=== PATIENT | female | born 1960 | race Caucasian/White ===

== ENCOUNTER 2016-10-09 10:25 | Inpatient (IN) | payer OTHER ==
[2016-10-09] VITALS (8 sets, daily range): BP systolic 123–132; BP diastolic 68–83; PULSE 72–80; RESP 16–18; TEMP 97.9; Ht 160 cm; Wt 64.5 kg
[~2016-10-09] VITALS: Ht 160 cm; Wt 64.5 kg
[~2016-10-09 10:25] MED LIST: LORA-444 PO; SERT100T PO; ZYPREXA; [UNRECOGNIZED DRUG - CODE] PO
[2016-10-09] MEDS ORDERED: morphine 4 MG/ML VIAL IV STA ×2 (10:51→13:06)
[2016-10-09] MEDS ORDERED: ONDANSETRON 4 MG INJ IV STA ×2 (10:51→13:06)
[2016-10-09] MEDS ORDERED: DIAZ10TA4 PO (10:54)
[2016-10-09] MEDS ORDERED: QUET100T PO (10:54)
--- NOTE | 2016-10-09 11:03 | ERA ---
ER Documentation Chief Complaint Date/Time DATE: 10/09/16 TIME: 10:56 Chief Complaint SENT BY PMD FOR CHEST PAIN , SOB HPI 56-year-old female who presents from urgent care clinic for chest pain. The patient gives a prolonged description of a history that includes multiple episodes of "my heart stopping and I wake up intubated ". The patient is also wearing a Holter monitor for palpitations that started earlier this month. The patient has been on a Holter monitor for approximately 1-1/2 weeks. The patient describes chest pain that is left-sided, sharp, pleuritic including her left back. No mid back pain, no sudden onset of pain. She also describes a remote history of ruptured intracranial aneurysm, intracranial hemorrhage. She denies any headache currently. She denies any recent travel or immobilization no history of DVT or pulmonary embolism. The patient states that Dr. Rizzo has been talking about arranging for stress test or angiogram but she has not had that performed at this time. ROS All systems reviewed and are negative except as per history of present illness. Medications Home Meds Reported Medications Quetiapine Fumarate* (Seroquel*) 100 Mg Tablet, 100 MG PO HS, #30 TAB 10/09/16 Diazepam* (Diazepam*) 10 Mg Tablet, 10 MG PO DAILY Y for PRN, TAB 10/09/16 Discontinued Reported Medications Meperidine Hcl (Demerol) 100 Mg Tab, 100 MG PO DAILY Y 10/26/12 [Zyprexa] No Conflict Check 10/26/12 Sertraline Hcl* (Zoloft*) 100 Mg Tablet, 100 MG PO DAILY 10/26/12 Lorazepam* (Ativan*) 2 Mg Tablet, 2 MG PO DAILY 10/26/12 Allergies Allergies: Coded Allergies: No Known Drug Allergies (Verified Allergy, Unknown, 10/09/16) PMhx/Soc History of Surgery: Yes (NECK AND SPINE INFUSIONS) Anesthesia Reaction: No Hx Neurological Disorder: Yes (ORGANIC BRAIN DX., CYST, BRAIN ATROPHY) Hx Respiratory Disorders: No Hx Cardiac Disorders: Yes (ANEURYSMS) Hx Psychiatric Problems: No Hx Miscellaneous Medical Probl: No Hx Alcohol Use: Yes (OCCASIONAL) Hx Substance Use: No Hx Tobacco Use: Yes FmHx Family History: No diabetes Physical Exam Vitals Vital Signs Date Time Temp Pulse Resp B/P Pulse Ox O2 Delivery O2 Flow Rate FiO2 10/09/16 12:22 98.1 85 18 155/83 100 Nasal Cannula 1.0 10/09/16 10:35 Nasal Cannula 1 10/09/16 10:27 98.1 109 18 196/86 96 Physical Exam General: Well developed, well nourished, no acute distress Head: Normocephalic, atraumatic. Eyes: Pupils equally reactive, EOM intact ENT: Moist mucous membranes Neck: Supple, no lymphadenopathy Respiratory: Lungs clear bilaterally, no distress Cardiovascular: RRR, no murmurs, rubs, or gallops Abdominal: Soft, non-tender, non-distended, no peritoneal signs : Deferred MSK: No edema, no unilateral swelling, 5/5 strength, no pulse deficits Neurologic: Alert and oriented, moving all extremities, normal speech, no focal weakness, no cerebellar signs Skin: No rash Psych: Normal mood Result Diagram: 10/09/16 1035 10/09/16 1035 Results 24 hrs Laboratory Tests Test 10/09/16 10:35 Activated Partial Thromboplast Time 30.1Sec Anion Gap 18 Basophils # 0.110^3/ul Basophils % 0.7% Blood Urea Nitrogen 12mg/dl Calcium Level 9.6mg/dl Carbon Dioxide Level 30mmol/L Chloride Level 101mmol/L Creatinine 0.73mg/dl Eosinophils # 0.510^3/ul Eosinophils % 6.4% Glucose Level 98mg/dl Hematocrit 46.3% Hemoglobin 15.4g/dl INR International Normalized Ratio 0.91 Lymphocytes # 3.210^3/ul Lymphocytes % 44.0% Mean Corpuscular Hemoglobin 31.0pg Mean Corpuscular Hemoglobin Concent 33.3g/dl Mean Corpuscular Volume 93.3fl Mean Platelet Volume 10.2fl Monocytes # 0.510^3/ul Monocytes % 6.3% Neutrophils # 3.110^3/ul Neutrophils % 42.3% Nucleated Red Blood Cells # 0.010^3/ul Nucleated Red Blood Cells % 0.0/100WBC Platelet Count 52873^3/UL Potassium Level 4.2mmol/L Prothrombin Time 12.3Sec Prothrombin Time Ratio 1.0 Red Blood Count 4.9610^6/ul Red Cell Distribution Width 13.0% Sodium Level 145mmol/L Troponin I < 0.012ng/ml White Blood Count 7.310^3/ul Current Medications Medications (Trade) Dose Ordered Sig/Gin Route PRN Reason Start Time Stop Time Status Last Admin Dose Admin Morphine Sulfate (morphine) 4 mg ONCE STAT IV 10/09/16 10:51 10/09/16 10:53 DC 10/09/16 11:06 Ondansetron HCl 4 mg 4 mg ONCE STAT IV 10/09/16 10:51 10/09/16 10:53 DC 10/09/16 11:06 Iohexol 100 ml @ ud STK-MED ONCE .ROUTE 10/09/16 11:49 10/09/16 11:50 DC 10/09/16 12:20 Sodium Chloride (NS) 100 ml @ ud STK-MED ONCE .ROUTE 10/09/16 11:49 10/09/16 11:50 DC 10/09/16 12:21 Aspirin (Aspirin) 324 mg ONCE ONCE PO 10/09/16 13:00 10/09/16 13:01 DC Ondansetron HCl (Zofran Inj) 4 mg ER BRIDGE PRN IV NAUSEA AND/OR VOMITING 10/09/16 13:30 10/10/16 13:29 Acetaminophen (Tylenol Tab) 650 mg ER BRIDGE PRN PO MILD PAIN/FEVER 10/09/16 13:30 10/10/16 13:29 Procedures/MDM EKG, MONITORS, & DIAGNOSTIC IMAGING: EKG: I reviewed and interpreted a 12-lead EKG. Rhythm: Normal sinus rhythm Ectopy: None Intervals: No abnormalities ST segments: No elevations or depressions T waves: No contiguous inversions Repeat EKG: EKG: I reviewed and interpreted a 12-lead EKG. Rhythm: Normal sinus rhythm Ectopy: None Intervals: No abnormalities ST segments: No elevations or depressions T waves: No contiguous inversions Chest x-ray: I reviewed and interpreted a 1 view of the chest Mediastinum: No enlargement Cardiac silhouette: No cardiomegaly Airspace: Clear lung teixeira bilaterally without evidence of pneumothorax Bones: No evidence of fracture CTPA: No evidence of pulmonary embolism LAB INTERPRETATION: Negative troponin MEDICAL DECISION MAKING: The patient's history, physical exam and clinical presentation is concerning for possible cardiogenic etiology and acute coronary syndrome. However, the patient also has multiple different descriptions of history and complications including possible cardiac arrest though not documented in our electronic medical record. The patient also has some pleuritic pain. This does raise the concern for possible pulmonary embolism. She states that she was recently hospitalized at [facility] but left AMA for chest pain. She did not see a heel molder at that time. Given the patient's description of pain I believe she meets moderate risk profile for [place] for CT PE study will be obtained. Low concern for dissection though slightly hypertensive. Avoid aspirin until CT imaging is obtained. Based on the patient's clinical exam and history and risk factors, I have a much lower clinical concern for pulmonary embolism, acute aortic dissection, pneumothorax, pneumonia, cardiac tamponade. HEART Score: 4 MACE Rate: 16.6% Shared Decision Making: We had a conversation regarding risk stratification, MACE rate, and the risks, benefits, alternatives of disposition planning options. Disposition planning: Given the patient's complex history I would recommend inpatient hospitalization. ER COURSE: I will avoid aspirin until negative CT imaging the low clinical concern for dissection. If the patient has a pulmonary embolism anticoagulation would likely be contraindicated given her history of intracranial hemorrhage. Consideration for IVC filter. Given the patient's persistent chest pain, reports that that Dr. Rizzo is considering angiogram inpatient hospitalization with cardiology consultation and consideration for provocative testing or angiography would be reasonable. Dr. Porter has been kind enough to come and evaluate the patient. He recommends serial troponins and patient observation and hospitalization. Aspirin provided I kept the patient and/or family informed of laboratory and diagnostic imaging results throughout the emergency room course. DISPOSITION PLAN: Telemetry admission for management of chest pain CONSULTATION: Accepting care team and consultations: I discussed the current laboratory data, diagnostic imaging and emergency care provided. Admitting team: Dr. Gemini LYLE Admitting team indication: Insurance directed, regal Consulting services: Cardiology Dr. Porter Departure Diagnosis: Primary Impression: Chest pain Qualified Code: R07.9 - Chest pain, unspecified type Condition: USAMA Winchester MD Oct 09, 2016 11:03
--- NOTE | 2016-10-09 11:12 | RADRPT ---
PROCEDURE: XR Chest. CLINICAL INDICATION: Chest pain TECHNIQUE: Chest AP portable. COMPARISON: No comparison available. FINDINGS: Cardiac device over left chest. The mediastinal structures are unremarkable. The heart is normal in size and configuration. The pu lmonary vascularity is normal. The lung teixeira are unremarkable. No consolidation is identified. The pleural spaces are unremarkable. The axial skeleton is unremarkable. IMPRESSION: No active intrathoracic disease. RPTAT: HGDB .Kleber Cedeño MD, MD Date Time Electronically viewed and signed by .Kleber Cedeño MD, on 10/09/2016 11:12 .B/
[2016-10-09 11:14] LABS: ADD SCAN DIFF NO
[2016-10-09 11:22] LABS: CHLORIDE 101 mmol/L (97-110); SODIUM 145 mmol/L (135-144)
[2016-10-09 11:23] LABS: POTASSIUM 4.2 mmol/L (3.5-5.1)
[2016-10-09 11:25] LABS: CREATININE 0.73 mg/dl (0.44-1.00); INR 0.91; PROTIME 12.3 Sec (12.2-14.2)
[2016-10-09 11:26] LABS: ANION GAP 18 (8-16); BLOOD UREA NITROGEN 12 mg/dl (7-20); CALCIUM 9.6 mg/dl (8.4-10.2); CARBON DIOXIDE 30 mmol/L (21-31); GLUCOSE 98 mg/dl (70-220); PARTIAL THROMBOPLASTIN TIME 30.1 Sec (25.0-35.0)
--- NOTE | 2016-10-09 11:26 | CONS ---
Date/Time of Note Date/Time of Note DATE: 10/09/16 TIME: 11:21 Assessment/Plan Assessment/Plan Chief Complaint/Hosp Course 1) Atypical chest pain likely noncardiac, likely musculosceletal 2) Unspecified heart disease Problems: Additional Assessment/Plan 1) serial troponin 2) will review office records Consultation Date/Type/Reason Admit Date/Time Date of Consultation: Oct 09, 2016 Type of Consultation: cv Reason for Consultation chest pain Referring Provider: USAMA HOGUE MD Hx of Present Illness patient reports left sided chest pain, localized, sharp, worse with inspiration , reports sob due to attempts to breath shallow, reproducible by touch. No syncope or near syncope, currentlyt is wearing monitor device. patient's states confusing history. denies distress Constitutional: no complaints ENT: no complaints Respiratory: shortness of breath Cardiovascular: chest pain Gastrointestinal: no complaints Musculoskeletal: no complaints Skin: no complaints Neurologic: no complaints Past Medical History Medical History: other (unspecified heart disease) Family History Significant Family History: hypertension Social History Alcohol Use: occasionally Smoking Status: Current every day smoker Drug Use: none Exam/Review of Systems Vital Signs Vitals Vital Signs Date Time Temp Pulse Resp B/P Pulse Ox O2 Delivery O2 Flow Rate FiO2 10/09/16 10:27 98.1 109 18 196/86 96 Exam Constitutional: alert, oriented Psych: other Head: atraumatic, normocephalic Neck: supple Respiratory: clear to auscultation Cardiovascular: regular rate and rhythm Gastrointestinal: soft Musculoskeletal: nl extremities to inspection Extremities: normal pulses Procedures Procedures EKG: SR, no significant abnormalities LEANDER DANIELS MD Oct 09, 2016 11:26
[2016-10-09 11:29] LABS: BASOPHIL # 0.1 10^3/ul (0.0-0.1); BASOPHILS % 0.7 % (0.0-2.0); EOSINOPHILS # 0.5 10^3/ul (0.0-0.5); EOSINOPHILS % 6.4 % (0.0-7.0); HEMATOCRIT 46.3 % (37.0-47.0); HEMOGLOBIN 15.4 g/dl (12.0-16.0); LYMPHOCYTES # 3.2 10^3/ul (0.8-2.9); MEAN CORPUSCULAR HGB CONC 33.3 g/dl (32.0-37.0); MEAN CORPUSCULAR VOLUME 93.3 fl (82.0-101.0); MEAN PLATELET VOLUME 10.2 fl (7.4-10.4); MONOCYTE # 0.5 10^3/ul (0.3-0.9); MONOCYTES % 6.3 % (0.0-11.0); NEUTROPHIL # 3.1 10^3/ul (1.6-7.5); NEUTROPHILS % 42.3 % (39.0-77.0); PLATELET COUNT 278 10^3/UL (140-415); RED BLOOD COUNT 4.96 10^6/ul (4.20-5.40); WHITE BLOOD COUNT 7.3 10^3/ul (4.8-10.8)
[2016-10-09 11:41] LABS: TROPONIN-I < 0.012 ng/ml (0.00-0.12)
[2016-10-09] MEDS ORDERED: SOD CHLORIDE 0.9% 100 ML ONE (11:49)
[2016-10-09] MEDS ORDERED: IOHEXOL 100 ML ONE (11:49)
--- NOTE | 2016-10-09 12:35 | RADRPT ---
PROCEDURE: CT angiogram of the chest with contrast. CLINICAL INDICATION: Rule out pulmonary embolism. Shortness of breath and hypertension. TECHNIQUE: CT scan of the chest with contrast was performed on a multidetector high-resolution CT scan. The patient was scanned following the uncomplicated intravenous administration of 100 ml Omni paque- 350. Coronal and sagittal reformatted images were obtained from the axial source images. Riley dard CT angiogram of the chest with contrast protocols were performed. The total exam CTDI equals 63.3 a mGy and the total exam DLP equals 3/56.87 mGy-cm. One or more of the following dose reduction techniques were used: - Automated exposure control. - Adjustment of the mA and/or kV according to patient size. Use of iterative reconstruction technique. COMPARISON: None FINDINGS: The pulmonary outflow tract, right and left main pulmonary arteries, right and left interlobar and r ight and left first intersegmental pulmonary arteries are well enhanced without filling defects. Sp ecifically no central pulmonary emboli. The aorta is normal in size without aneurysm dissection or periaortic fluid collections. The origin of the great vessels are unremarkable. The right left sub clavian arteries are unremarkable. The right left common carotid and brachial cephalic arteries are unremarkable. The heart is within normal limits in size without pericardial effusion. No evidence of pleural effu sions or pneumothoraces. There is bilateral apical pleural thickening. Minimal small focal areas o f scarring bilaterally. No evidence of acute infiltrates or pulmonary nodules bilaterally. No evid ence of mediastinal hilar or axillary lymphadenopathy. Images of the upper abdomen are unremarkable. Note the patient's neck is and a severely flexed orie ntation. There is partial fusion of the C5-6 vertebra. Degenerative changes lower cervical and upp er thoracic spine. There is chronic compression fracture of the T6 vertebral body. There are no ac tatitlek osseous findings. No osteolytic or osteoblastic lesions. IMPRESSION: 1. No evidence of central pulmonary emboli. 2. Unremarkable aorta and its branches as described above. 3. No evidence of lung infiltrates, pulmonary nodules, thoracic effusions or lymphadenopathy. 4. Mild bilateral apical and bilateral scattered areas of parenchymal scarring. RPTAT:AAJJ Rocio Carrington Physician Date Time Electronically viewed and signed by Rocio Carrington Physician on 10/09/2016 12:34 BM/
[2016-10-09] MEDS ORDERED: ASPIRIN 81 MG TAB PO ONE (13:00)
[2016-10-09] MEDS ORDERED: ACETAMINOPHEN 325 MG TAB PO PRN ×2 (13:30)
[2016-10-09] MEDS ORDERED: DIAZEPAM 5 MG TAB PO PRN (13:30)
[2016-10-09] MEDS ORDERED: DOCUSATE SODIUM 100 MG CAP PO PRN (13:30)
[2016-10-09] MEDS ORDERED: MAGNESIUM HYDROXIDE 30ML CUP PO PRN (13:30)
[2016-10-09] MEDS ORDERED: NACL 0.9% 3 ML SYG IV SCH (13:30)
[2016-10-09] MEDS ORDERED: ONDANSETRON 4 MG INJ IV PRN (13:30)
[2016-10-09] MEDS ORDERED: LORAZEPAM 2 MG INJ IV PRN (13:30)
[2016-10-09] MEDS ORDERED: BISACODYL 10 MG SUPP PR PRN (13:30)
[2016-10-09] MEDS ORDERED: NITROGLYCERIN (SL) 0.4 MG TAB SL PRN (13:30)
[2016-10-09] MEDS ORDERED: OXYCODONE/ACETAMINOPHEN (5/325) TAB PO PRN (14:00)
--- NOTE | 2016-10-09 14:43 | HP ---
DATE OF ADMISSION: 10/09/2016 PRIMARY POULTRY SLAUGHTERER: Dr. Rizzo. CHIEF COMPLAINT ON ADMISSION: Chest pressure and shortness of breath. HISTORY OF PRESENT ILLNESS: This is a 56-year-old female apparently known to Dr. Rizzo very well w ith a history of syncope as an outpatient and also previous history of cardiac arrest apparently who is in the process of being evaluated for a possible need for a pacemaker. She has a Holter monitor in place for the past 2 weeks after she had a syncopal episode approximately 2 weeks ago on 017. The patient presented today to the emergency department with complaint of substernal chest pre ssure and also shortness of breath. She is on room air and stable. She was also complaining of lef t upper back pain. It seems to be coming from inside, from what the patient is describing. A CT an giogram was done and is negative for any abnormal findings at this point. Cardiac enzymes were nega tive x1. Dr. Porter, one of the cardiologists who has seen her before, saw her here in the em ergency department. He will review her records as an outpatient and he is recommending for admissio n and trending of her cardiac enzymes overnight. The patient herself has a protracted history of mu ltiple injuries. She seems to have multiple trauma before. This seems to be in the setting of drug use of some sort. She has had back surgery done both cervical and lumbar, and it seems like she doan s chronic pain. She is narcotic dependent. She claims that she takes Delphos for her pain, which is not working anymore. She is very pleasant and is hemodynamically stable and fairly asymptomatic cur rently. She will be admitted to a telemetry floor. She denies any dizziness, nausea or vomiting. She denies any recent syncope, not since September 21. She denies any lower extremity edema, cough, or previous lung disease. She quit smoking a year ago, but did have a relapse 3 months ago. She is currently smoking half a pack a day. ALLERGIES: NO KNOWN ALLERGIES. PAST MEDICAL HISTORY: 1. Syncopal episodes, multiple. 2. Apparently status post cardiac arrest at least twice with unclear etiology. This is according t o the patient. She was seen at [facility]. 3. Previous history of drug use. 4. Tobacco use. 5. Insomnia. PAST SURGICAL HISTORY: 1. Status post cervical laminectomy and lumbar laminectomy, back in 1996. SOCIAL HISTORY: The patient lives with a roommate currently. She quit heavy drinking approximately 2 years ago and she is only drinking occasionally currently. She did go to a sober living at that time. She is a tobacco user. She smoked for approximately 30 years on and off up to a pack a day, quit for 1 year and now relapsed again as of 3 months ago and she is smoking half a pack a day. She has a history of drug use. She was using speed before, but she did quit in 2013. OUTPATIENT MEDICATIONS: 1. Valium 10 mg p.o. daily as needed. 2. Seroquel 100 mg p.o. at bedtime, although the patient uses it as needed. 3. Delphos as needed for pain. Patient claims that is not working. PHYSICAL EXAMINATION: VITAL SIGNS: Temperature is 98.1, heart rate of 85, sinus rhythm, respiratory rate 18, blood pressu re 165/83, the patient is satting 100% on room air. GENERAL: She is alert and oriented x4, a very pleasant lady in no acute distress. HEENT: Pupils are equally round and reactive to light. Extraocular muscles are intact. Anicteric sclerae. NECK: No JVD, no thyromegaly noted. HEART: Regular rate and rhythm, currently in sinus rhythm. She does have a Holter monitor still in place. No murmur, rubs, or gallops. LUNGS: Clear to auscultation bilaterally. There are no expiratory wheezes; however, this pain on the left side of her chest and also in the back is reproducible to touch, but may be musculoskeletal . ABDOMEN: Soft, nontender, nondistended. Bowel sounds are present. EXTREMITIES: No edema, clubbing or cyanosis. NEUROLOGIC: Grossly intact. LABORATORY DATA: White blood cell count is 7.3, hemoglobin 15.4, hematocrit 46.3, platelet count of 278. Chemistry with a sodium of 145, potassium 4.2, chloride 101, bicarbonate 30, BUN 12, creatini ne 0.73, troponin less than 0.012, glucose of 98, calcium of 9.8. INR is 0.91. PT 12.3, PTT 30.1. RADIOLOGICAL DATA: Patient had a chest x-ray that showed no active intrathoracic disease and CT ang iogram of the chest shows no evidence of central pulmonary emboli, unremarkable aorta, no evidence o f lung infiltrates, pulmonary nodule, transient effusion or lymphadenopathy. Mild bilateral apical and bilateral scattered area of parenchymal scarring. ASSESSMENT AND PLAN: This is a 56-year-old female with: 1. Chest pressure, shortness of breath fairly atypical, could be musculoskeletal or secondary to so me mild bronchospasms, given her history of smoking, but she also has a history of syncope of unclea r etiology so far and apparently cardiac arrest before. She has been in the process of being evalua karly as an outpatient. According to her, she was due for a stress test versus angiogram and possibly pacemaker placement. Therefore, Dr. Porter, who works with Dr. Rizzo, has seen the patient and will reevaluate the patient in the morning as to what further workup she needs. 2. Tobacco use. The patient agrees to quit. We will place a nicotine patch while inpatient. 3. Previous drug use. The patient is sober, off all drug use for at least 2 years now. 4. Chronic pain, narcotic dependent. We will try Percocet p.r.n. for pain. I have verbalized to t he patient that we will stay away from IV narcotics. 5. Insomnia. Resume Seroquel at night and continue Valium as needed. 6. Prophylaxis. Lovenox for DVT prophylaxis. Patient already on aspirin and Pepcid for GI prophyl axis. DISPOSITION: Follow up cardiology recommendation in a.m. The patient has 2 more sets of cardiac en zymes overnight. Dictated By: TORIN DUVAL/GERMAIN Conf#: [id number] DID#: [id number]
[2016-10-09] MEDS: NICOTINE (21 MG/24 HR) PATCH TRANSDERM SCH (17:17)
[2016-10-09] MEDS: morphine 2 MG INJ IV PRN ×2 (17:17→22:12)
[2016-10-09 19:17] LABS: CREATINE KINASE 72 IU/L (23-200)
[2016-10-09 19:27] LABS: CK-MB 0.32 ng/ml (0.0-2.4)
[2016-10-09 19:45] LABS: TROPONIN-I < 0.012 ng/ml (0.00-0.12)
[2016-10-09] MEDS: QUETIAPINE 100 MG TAB PO SCH (20:33)
[2016-10-09] MEDS: OXYCODONE/ACETAMINOPHEN (5/325) TAB PO PRN (20:33)
[2016-10-09] MEDS: FAMOTIDINE 20 MG TAB PO SCH (20:33)
[2016-10-09] MEDS: ONDANSETRON 4 MG INJ IV PRN (20:34)
[2016-10-09] MEDS ORDERED: ALBUTEROL/IPRATROPIUM (NEB) 3 ML AMP HHN PRN (21:00)
[2016-10-09] MEDS: ALBUTEROL/IPRATROPIUM (NEB) 3 ML AMP HHN SCH (21:41)
[2016-10-10] VITALS (11 sets, daily range): BP systolic 102–117; BP diastolic 58–72; PULSE 77–99; RESP 16–20
[2016-10-10 00:13] LABS: CK-MB 0.47 ng/ml (0.0-2.4)
[2016-10-10 00:16] LABS: TROPONIN-I 0.012 ng/ml (0.00-0.12)
[2016-10-10] MEDS: ALBUTEROL/IPRATROPIUM (NEB) 3 ML AMP HHN SCH ×4 (01:32→19:58)
[2016-10-10] MEDS: morphine 2 MG INJ IV PRN ×3 (04:22→17:12)
[2016-10-10 06:25] LABS: POTASSIUM 3.8 mmol/L (3.5-5.1)
[2016-10-10 06:27] LABS: CREATININE 0.78 mg/dl (0.44-1.00)
[2016-10-10 06:28] LABS: CALCIUM 8.6 mg/dl (8.4-10.2); MAGNESIUM 1.9 mg/dl (1.7-2.5)
[2016-10-10] MEDS: OXYCODONE/ACETAMINOPHEN (5/325) TAB PO PRN ×2 (08:04→21:28)
[2016-10-10] MEDS: NICOTINE (21 MG/24 HR) PATCH TRANSDERM SCH (08:29)
[2016-10-10] MEDS: ASPIRIN 81 MG TAB PO SCH (08:29)
[2016-10-10] MEDS: FAMOTIDINE 20 MG TAB PO SCH ×2 (08:29→20:17)
[2016-10-10] MEDS: ENOXAPARIN 40 MG/0.4 ML SYG SC SCH (08:37)
[2016-10-10] MEDS ORDERED: POTASSIUM CHLORIDE (SR) 20 MEQ TAB PO STA (09:57)
[2016-10-10] MEDS ORDERED: MAGNESIUM SULFATE 1 GM/D5W 100 ML IVPB ONE (10:00)
--- NOTE | 2016-10-10 10:57 | PN ---
Date/Time of Note Date/Time of Note DATE: 10/10/16 TIME: 10:48 Assessment/Plan VTE Prophylaxis VTE Prophylaxis Intervention: LMWH Lines/Catheters IV [facility] [place] [facility] Assessment/Plan Assessment/Plan 56-year-old female with: 1. Chest pressure, shortness of breath fairly atypical, could be musculoskeletal or secondary to some mild bronchospasms/COPD Resume Advair apparently now patient has been on it in the past Appreciate Cardiology evaluation and will follow up recommendations CE negative and CTA negative 2. COPD, needs to quit tobacco, Advair and nebs 3. Tobacco use. The patient agrees to quit. We will place a nicotine patch while inpatient. 4. Previous drug use. The patient is sober, off all drug use for at least 2 years now. 5. Chronic pain, narcotic dependent. Percocet p.r.n. for pain. 6. Insomnia. Resume Seroquel at night and continue Valium as needed. Prophylaxis. Lovenox for DVT prophylaxis. Pepcid for GI prophylaxis. DISPOSITION: Follow up cardiology recommendation today re ? stress test. Subjective 24 Hr Interval Summary Free Text/Dictation Patient doing well this AM but had episodes of bronchospasms overnight resolved with Nebs and patient this AM remembers having been on Advair and another inhaler in the past. No complaints this AM, cardiology recommendations pending re ? stress test Exam/Review of Systems Vital Signs Vitals Vital Signs Date Time Temp Pulse Resp B/P Pulse Ox O2 Delivery O2 Flow Rate FiO2 10/10/16 08:26 99 10/10/16 08:20 98.0 20 107/58 100 10/10/16 07:52 2.0 10/10/16 02:02 27 10/09/16 14:14 Room Air Intake and Output 10/09/16 10/09/16 10/10/16 15:00 23:00 07:00 Intake Total 500 ml 550 ml Output Total 400 ml Balance 100 ml 550 ml Exam Constitutional: alert, oriented, well developed Respiratory: clear to auscultation, normal air movement, other (no wheezes ) Cardiovascular: nl pulses, regular rate and rhythm Gastrointestinal: non-tender, soft Extremities: normal pulses, other (no edema, clubbing or cyanosis ) Neurological: MULTIPLE EFFECT EVAPORATOR OPERATOR II-XII intact, nl mental status, nl speech, nl strength Results Result Diagram: 10/09/16 1035 10/10/16 0507 Results 24 hrs Laboratory Tests Test 10/09/16 18:20 10/09/16 23:25 10/10/16 05:07 Creatine Kinase 72 71 Creatine Kinase Index 0.4 0.7 Creatinine Kinase MB (Mass) 0.32 0.47 Troponin I < 0.012 0.012 Anion Gap 13 Blood Urea Nitrogen 12 Calcium Level 8.6 Carbon Dioxide Level 32 H Chloride Level 99 Creatinine 0.78 Glucose Level 96 Magnesium Level 1.9 Potassium Level 3.8 Sodium Level 140 Medications Medications Current Medications Diazepam (Valium) 10 mg DAILY PRN PO ANXIETY; Start 10/09/16 at 13:30 Quetiapine Fumarate (Seroquel) 100 mg HS PO Last administered on 10/09/16 20: 33; Admin Dose 100 MG; Start 10/09/16 at 21:00 Lorazepam (Ativan) 0.5 mg Q6H PRN IV ANXIETY; Start 10/09/16 at 13:30 Ondansetron HCl (Zofran Inj) 4 mg Q6H PRN IV NAUSEA AND/OR VOMITING Last administered on 10/09/16 20:34; Admin Dose 4 MG; Start 10/09/16 at 13:30 Aspirin (Aspirin) 81 mg DAILY PO Last administered on 10/10/16 08:29; Admin Dose 81 MG; Start 10/10/16 at 09:00 Nitroglycerin (Nitroglycerin (Sl Tab) 0.4 Mg) 1 tab Q5M PRN SL CHEST PAIN; Start 10/09/16 at 13:30 Acetaminophen (Tylenol Tab) 650 mg Q6H PRN PO PAIN LEVEL 1-3 OR FEVER; Start at 13:30 Morphine Sulfate (morphine) 2 mg Q4H PRN IV PAIN LEVEL 7-10 Last administered on 10/10/16 04:22; Admin Dose 2 MG; Start 10/09/16 at 13:30 Docusate Sodium (Colace) 100 mg Q12H PRN PO CONSTIPATION; Start 10/09/16 at 13: 30 Magnesium Hydroxide (Milk Of Mag) 30 ml DAILY PRN PO CONSTIPATION; Start at 13:30 Bisacodyl (Dulcolax Supp) 10 mg DAILY PRN [place] CONSTIPATION; Start 3/18/17 at 13 :30 Famotidine (Pepcid) 20 mg Q12 PO Last administered on 10/10/16 08:29; Admin Dose 20 MG; Start 10/09/16 at 21:00 Enoxaparin Sodium (Lovenox) 40 mg DAILY SC Last administered on 10/10/16 08:37 ; Admin Dose 40 MG; Start 10/10/16 at 09:00 Oxycodone/ Acetaminophen (Percocet (5/ 325)) 1 tab Q6H PRN PO PAIN Last administered on 10/10/16 08:04; Admin Dose 1 TAB; Start 10/09/16 at 14:00 Oxycodone/ Acetaminophen (Percocet (5/ 325)) 2 tab Q6H PRN PO PAIN; Start 10/09 at 14:00 Nicotine 1 patch 1 patch DAILY TRANSDERM Last administered on 10/10/16 08:29; Admin Dose 1 PATCH; Start 10/09/16 at 15:00 Magnesium Sulfate/ Dextrose (Magnesium Sulfate 1 Gm/D5W) 100 ml @ 100 mls/hr ONCE ONCE IVPB ; Start 10/10/16 at 10:00; Stop 10/10/16 at 10:59 TORIN ZAVALA Oct 10, 2016 10:57
[2016-10-10] MEDS: SALMETEROL/FLUTICASONE 250/50 INHA INH SCH ×2 (12:53→20:17)
--- NOTE | 2016-10-10 15:33 | PN ---
DATE: 10/10/2016 SUBJECTIVE: The patient reports back pain, uncomfortable all night. PHYSICAL EXAMINATION: VITAL SIGNS: Temperature 98.5, pulse 68, blood pressure 132/63, oxygen saturation 96%. NECK: No jugular venous distention. LUNGS: Clear. CARDIAC: Reveals regular rhythm. ABDOMEN: Soft, nontender, nondistended. EXTREMITIES: No clubbing, cyanosis, or edema. CURRENT MEDICATIONS: 1. Metoprolol. 2. Haldol. 3. Lorazepam. 4. Hydralazine. 5. Fentanyl. LABORATORY RESULTS: White count 7.3, hematocrit 46.3, sodium 140, potassium 3.8, BUN 12, creatinine 0.7. Troponin negative x3. TELEMETRY: No acute events. ASSESSMENT: The patient with multiple complaints, no evidence of acute coronary syndrome. No synco pe. At this time, she has been awaiting outpatient evaluation for possible stress test. I do not s ee any clear indication for her to remain as an inpatient to undergo the stress test from a cardiac perspective. Dictated By: JJ AKERS/GERMAIN Conf#: [id number] DID#: [id number]
[2016-10-10] MEDS: ONDANSETRON 4 MG INJ IV PRN (17:11)
[2016-10-10] MEDS: QUETIAPINE 100 MG TAB PO SCH (20:17)
[2016-10-11] VITALS (7 sets, daily range): BP systolic 84–118; BP diastolic 53–60; PULSE 80–108; RESP 16–18
[2016-10-11] MEDS: ALBUTEROL/IPRATROPIUM (NEB) 3 ML AMP HHN SCH ×3 (01:14→13:40)
[2016-10-11 07:25] LABS: ADD SCAN DIFF NO
[2016-10-11 07:28] LABS: BASOPHILS % 0.3 % (0.0-2.0); EOSINOPHILS # 0.3 10^3/ul (0.0-0.5); EOSINOPHILS % 3.9 % (0.0-7.0); HEMATOCRIT 35.8 % (37.0-47.0); HEMOGLOBIN 12.1 g/dl (12.0-16.0); LYMPHOCYTES # 1.9 10^3/ul (0.8-2.9); LYMPHOCYTES % 26.9 % (15.0-51.0); MEAN CORPUSCULAR HEMOGLOBIN 32.3 pg (29.0-33.0); MEAN CORPUSCULAR HGB CONC 33.8 g/dl (32.0-37.0); MEAN CORPUSCULAR VOLUME 95.5 fl (82.0-101.0); MONOCYTE # 0.5 10^3/ul (0.3-0.9); MONOCYTES % 7.6 % (0.0-11.0); NEUTROPHIL # 4.3 10^3/ul (1.6-7.5); NEUTROPHILS % 61.2 % (39.0-77.0); PLATELET COUNT 212 10^3/UL (140-415); RED BLOOD COUNT 3.75 10^6/ul (4.20-5.40)
[2016-10-11 07:43] LABS: POTASSIUM 4.2 mmol/L (3.5-5.1)
[2016-10-11 07:45] LABS: CREATININE 0.84 mg/dl (0.44-1.00)
[2016-10-11 07:46] LABS: CALCIUM 8.7 mg/dl (8.4-10.2); MAGNESIUM 1.9 mg/dl (1.7-2.5)
[2016-10-11] MEDS: ASPIRIN 81 MG TAB PO SCH (08:19)
[2016-10-11] MEDS: FAMOTIDINE 20 MG TAB PO SCH (08:19)
[2016-10-11] MEDS: NICOTINE (21 MG/24 HR) PATCH TRANSDERM SCH (08:20)
[2016-10-11] MEDS: SALMETEROL/FLUTICASONE 250/50 INHA INH SCH (08:20)
[2016-10-11] MEDS: ENOXAPARIN 40 MG/0.4 ML SYG SC SCH (08:29)
[2016-10-11] MEDS: morphine 2 MG INJ IV PRN ×2 (10:40→17:04)
[2016-10-11] MEDS: OXYCODONE/ACETAMINOPHEN (5/325) TAB PO PRN (12:22)
[2016-10-11] MEDS ORDERED: REGADENOSON 0.4 MG/5 ML SYG ONE (14:55)
--- NOTE | 2016-10-11 16:53 | RADRPT ---
PROCEDURE: Lexiscan myocardial perfusion study CLINICAL INDICATION: 56 -year-old patient complaining of chest pain. TECHNIQUE: Lexiscan 0.4 mg intravenously separate acquisition gated myocardial perfusion SPECT usi ng Tc 99m Myoview 29.4 mCi intravenously at stress and Tc-99m Myoview, 10.1 mCi intravenously at res t was performed using the rest/stress sequence. Poststress Myoview SPECT images were obtained in th e supine position. COMPARISON: No prior studies. FINDINGS: Perfusion images reveal no evidence of perfusion defects. Lexiscan post stress gated SPECT images demonstrate no wall motion abnormalities. IMPRESSION: 1. No evidence of perfusion defects. 2. No wall motion abnormalities. 3. The left ventricle ejection fraction at stress is 69%. A call report was made to Dr. Chance at 04:50 p.m. on October 11, 2016 RPTAT: HH .Leila Jefferson MD, Date Time Electronically viewed and signed by .Leila Jefferson MD, on 10/11/2016 16:53 .L/
--- NOTE | 2016-10-11 17:32 | PN ---
Date/Time of Note Date/Time of Note DATE: 10/11/16 TIME: 17:22 Assessment/Plan VTE Prophylaxis VTE Prophylaxis Intervention: SCD's Lines/Catheters IV Catheter Type (from Nrsg): Saline Lock Assessment/Plan Assessment/Plan 56-year-old female with: 1. Chest pressure, shortness of breath fairly atypical, could be musculoskeletal or secondary to some mild bronchospasms/COPD. CTA negative Back on Advair and will add Combivent at discharge, apparently now patient has been on it in the past Appreciate Cardiology evaluation, stress test negative D/c home with outpatient cardio follow up. 2. COPD, needs to quit tobacco, Advair and Combivent. 3. Tobacco use. The patient agrees to quit. Nicotine patch while inpatient. 4. Previous drug use. The patient is sober, off all drug use for at least 2 years now. 5. Chronic pain, narcotic dependent. Percocet p.r.n. for pain while inpatient. 6. Insomnia/? Bipolar disorder. Continue Seroquel and Valium as needed. Follow up with Mental Health outpatient Prophylaxis. Lovenox for DVT prophylaxis. Pepcid for GI prophylaxis. DISPOSITION: D/c Home and Follow up cardiology and PCP outpatient.. Subjective 24 Hr Interval Summary Free Text/Dictation Patient doing well today Stress test negative D/c home with PCP and Cardiology follow up Exam/Review of Systems Vital Signs Vitals Vital Signs Date Time Temp Pulse Resp B/P Pulse Ox O2 Delivery O2 Flow Rate FiO2 10/11/16 13:43 97 21 10/11/16 13:42 102 20 10/11/16 13:23 2.0 10/11/16 08:00 98.1 84/54 Room Air Intake and Output 10/10/16 10/10/16 10/11/16 15:00 23:00 07:00 Intake Total 100 ml 1430 ml Output Total 650 ml Balance -550 ml 1430 ml Exam Constitutional: alert, oriented, well developed Respiratory: clear to auscultation, normal air movement Cardiovascular: nl pulses, regular rate and rhythm Gastrointestinal: non-tender, soft Musculoskeletal: nl extremities to inspection Extremities: normal pulses, other (no edema, clubbing or cyanosis ) Neurological: RETAIL ASSISTANT II-XII intact, nl mental status, nl speech, nl strength Results Result Diagram: 10/11/16 0600 10/11/16 0600 Results 24 hrs Laboratory Tests Test 10/11/16 06:00 Anion Gap 12 Basophils # 0.0 Basophils % 0.3 Blood Urea Nitrogen 17 Calcium Level 8.7 Carbon Dioxide Level 32 H Chloride Level 102 Creatinine 0.84 Eosinophils # 0.3 Eosinophils % 3.9 Glucose Level 93 Hematocrit 35.8 #L Hemoglobin 12.1 # Lymphocytes # 1.9 Lymphocytes % 26.9 Magnesium Level 1.9 Mean Corpuscular Hemoglobin 32.3 Mean Corpuscular Hemoglobin Concent 33.8 Mean Corpuscular Volume 95.5 Mean Platelet Volume 10.0 Monocytes # 0.5 Monocytes % 7.6 Neutrophils # 4.3 Neutrophils % 61.2 Nucleated Red Blood Cells # 0.0 Nucleated Red Blood Cells % 0.0 Phosphorus Level 5.0 H Platelet Count 212 # Potassium Level 4.2 Red Blood Count 3.75 #L Red Cell Distribution Width 13.0 Sodium Level 142 White Blood Count 7.0 Medications Medications Current Medications Diazepam (Valium) 10 mg DAILY PRN PO ANXIETY Last administered on 10/10/16 23: 21; Admin Dose 10 MG; Start 10/09/16 at 13:30 Quetiapine Fumarate (Seroquel) 100 mg HS PO Last administered on 10/10/16 20: 17; Admin Dose 100 MG; Start 10/09/16 at 21:00 Lorazepam (Ativan) 0.5 mg Q6H PRN IV ANXIETY; Start 10/09/16 at 13:30 Ondansetron HCl (Zofran Inj) 4 mg Q6H PRN IV NAUSEA AND/OR VOMITING Last administered on 10/10/16 17:11; Admin Dose 4 MG; Start 10/09/16 at 13:30 Aspirin (Aspirin) 81 mg DAILY PO Last administered on 10/11/16 08:19; Admin Dose 81 MG; Start 10/10/16 at 09:00 Nitroglycerin (Nitroglycerin (Sl Tab) 0.4 Mg) 1 tab Q5M PRN SL CHEST PAIN; Start 10/09/16 at 13:30 Acetaminophen (Tylenol Tab) 650 mg Q6H PRN PO PAIN LEVEL 1-3 OR FEVER Last administered on 10/10/16 14:29; Admin Dose 650 MG; Start 10/09/16 at 13:30 Morphine Sulfate (morphine) 2 mg Q4H PRN IV PAIN LEVEL 7-10 Last administered on 10/11/16 17:04; Admin Dose 2 MG; Start 10/09/16 at 13:30 Docusate Sodium (Colace) 100 mg Q12H PRN PO CONSTIPATION; Start 10/09/16 at 13: 30 Magnesium Hydroxide (Milk Of Mag) 30 ml DAILY PRN PO CONSTIPATION; Start at 13:30 Bisacodyl (Dulcolax Supp) 10 mg DAILY PRN PA CONSTIPATION; Start 10/09/16 at 13 :30 Famotidine (Pepcid) 20 mg Q12 PO Last administered on 10/11/16 08:19; Admin Dose 20 MG; Start 10/09/16 at 21:00 Enoxaparin Sodium (Lovenox) 40 mg DAILY SC Last administered on 10/11/16 08:29 ; Admin Dose 40 MG; Start 10/10/16 at 09:00 Oxycodone/ Acetaminophen (Percocet (5/ 325)) 1 tab Q6H PRN PO PAIN Last administered on 10/10/16 21:28; Admin Dose 1 TAB; Start 10/09/16 at 14:00 Oxycodone/ Acetaminophen (Percocet (5/ 325)) 2 tab Q6H PRN PO PAIN Last administered on 10/11/16 12:25; Admin Dose 2 TAB; Start 10/09/16 at 14:00 Nicotine (Nicoderm 21 Mg/ 24hr) 1 patch DAILY TRANSDERM Last administered on 08:20; Admin Dose 1 PATCH; Start 10/09/16 at 15:00 Salmeterol Xinafoate/ Fluticasone (Advair 250/50 Diskus) 1 inh BID INH Last administered on 10/11/16 08:20; Admin Dose 1 INH; Start 10/10/16 at 12:00 TORIN ZAVALA Oct 11, 2016 17:31
--- NOTE | 2016-10-11 17:34 | PDOCDIS ---
Discharge Instructions CONDITION Patient Condition: Good HOME CARE INSTRUCTIONS: Diet Instructions: Low Fat /Cholesterol ACTIVITY: Activity Restrictions: No Restrictions FOLLOW UP/APPOINTMENTS Appointments Follow up with Cardiology as outpatient in 2 to 4 weeks Follow up with PCP within 1 week Follow up with Psychiatry/Mental Health outpatient within 2 to 4 weeks OTHER ORDERS: Other Orders: Resume Advair at home TORIN ZAVALA Oct 11, 2016 17:34
[2016-10-11] MEDS ORDERED: NICO1PAT6 TRANSDERM (17:36)
[2016-10-11] MEDS ORDERED: QUET100T PO (17:36)
[2016-10-11] MEDS ORDERED: IPRA4AER INHALATION (17:36)
--- NOTE | 2016-10-12 14:20 | CARRPT ---
DATE OF PROCEDURE: 10/11/2016 PROCEDURE: Lexiscan nuclear stress test. PATIENT HISTORY: This is a 56-year-old female who presents with chest pain. BASELINE ECG: Demonstrates sinus rhythm at 74 beats per minute. BASELINE HEART RATE: 94. BASELINE BLOOD PRESSURE: 119/70. Lexiscan was administered as per protocol. SYMPTOMS: Were abdominal discomfort which resolved. PEAK HEART RATE: 121. PEAK BLOOD PRESSURE: 136/63. ARRHYTHMIAS: None. ECG INTERPRETATION: Nonischemic. The nuclear portion will be interpreted by our radiology colleagues. Dictated By: TR MCDONOUGH/GERMAIN Conf#: [id number] DID#: [id number]
--- NOTE | 2016-10-13 06:42 | DS ---
DATE OF ADMISSION: 10/09/2016 DATE OF DISCHARGE: 10/11/2016 PRIMARY CARE PHYSICIAN: Unknown. PRIMARY COTTON BREEDER: Dr. Rizzo CONSULTANTS DURING THIS ADMISSION: 1. Dr. Jameson 2. Dr. Chance, covering for Dr. Rizzo ADMITTING PHYSICIAN: Dr. Smith DISCHARGING PHYSICIAN: Dr. Smith CHIEF COMPLAINT ON ADMISSION: Chest pressure and shortness of breath. BRIEF HISTORY OF PRESENT ILLNESS: This is a 56-year-old female apparently known to Dr. Rizzo with previous history of syncope and possibly cardiac arrest a few months ago at an outside hospital who is in the process of being evaluated as to if she needs a pacemaker or not. She has a Holter event monitoring that is still in place and presented to the emergency department with complaint of chest pressure and shortness of breath. Patient was evaluated by cardiology, Dr. Porter, at first a nd recommendation was to admit to rule out for acute coronary syndrome. HOSPITAL COURSE: The patient was admitted to a telemetry bed. She was ruled out for acute coronary syndrome. Dr. Jameson, who was covering for the group of cardiology, saw the patient and did revie w some of her records as an outpatient. Apparently there was not much in the records in terms of pr evious risk stratification and cardiac workup. Therefore, the decision was made to have a stress te st done while the patient was still inpatient. The patient had a stress test performed by Dr. Josh atkinson, the conference center manager for the group, on 10/11/2016 which came back negative. The patient was discharg ed, therefore, at that time with followup with Dr. Rizzo as an outpatient. DISPOSITION: Discharge home. DISCHARGE CONDITION: Stable. DISCHARGE DIET: Cardiac diet. DISCHARGE ACTIVITY: Resume home activity. FOLLOWUP: 1. The patient is to follow up with her primary care physician within 1 week. 2. Follow up with Dr. Rizzo within 2 to 4 weeks. 3. She needs to follow up with psychiatry in mental health within 2 to 4 weeks. She has a history of psychiatric illness, herself admits to it. DISCHARGE DIAGNOSES: 1. Chest pressure, shortness of breath, noncardiac likely. 2. Chronic obstructive pulmonary disease. 3. Tobacco use. 4. Previous drug abuse. 5. Chronic pain, narcotic dependent. 6. Insomnia. 7. Psychiatric illness, possibly bipolar disorder. DISCHARGE MEDICATIONS: Include: 1. Combivent 1 puff inhaled q.i.d. p.r.n. wheezing. 2. Nicotine 21 mg patch daily. 3. Diazepam 10 mg p.o. daily as needed for anxiety. 4. Seroquel 100 mg p.o. at bedtime. The patient was given a new prescription. 5. Advair 250/50 one puff inhaled b.i.d. Patient reports that she already has Advil at home. Dictated By: TORIN DUVAL/GERMAIN Conf#: [id number] DID#: [id number]
== END 2016-10-11 18:00 | disposition home or self-care (01) | DRG 191 ==
LOC: E/R 10:25 → TEL 13:04
PROVIDERS: ADMIT Internal Medicine; ATTEND Internal Medicine
PROC: C22G1ZZ Tomographic (Tomo) Nuclear Medicine Imaging of Myocardium using Technetium 99m (Tc-99m) (ICD-10-PCS; principal; 2016-10-11)
DX: J44.9 Chronic obstructive pulmonary disease, unspecified (principal); F11.20 Opioid dependence, uncomplicated; Z86.74 Personal history of sudden cardiac arrest; J98.01 Acute bronchospasm; Z72.0 Tobacco use; F17.210 Nicotine dependence, cigarettes, uncomplicated; Z87.898 Personal history of other specified conditions; G47.00 Insomnia, unspecified; G89.29 Other chronic pain; F31.9 Bipolar disorder, unspecified
CPT/HCPCS: 36415; 71010; 71275; 78452; 80048; 82550; 82553; 83735; 84100; 84484; 85025; 85610; 85730; 87081; 93005; 93017; 94640; 94664; 96374; 96375; 96376; A9500; A9505; J1650; J2270; J2405; J2785; J3475; Q9967